=== PATIENT | female | born 1995 | race Caucasian/White ===

== ENCOUNTER 2018-09-18 22:44 | Emergency (ER) | payer SELFPAY ==
[2018-09-19] MEDS ORDERED: ONDANSETRON HCL INJ/PF 4 MG/2 ML SDV IV ONE ×2 (01:59→11:40)
[2018-09-19] MEDS ORDERED: IBUPROFEN 600 MG TABLET PO ONE (01:59)
--- NOTE | 2018-09-19 02:03 | ER Document Report ---
ED Medical Screen (RME) - General Chief Complaint: Vaginal Bleeding Stated Complaint: ABDOMINAL PAIN Time Seen by Provider: 09/19/18 01:57 Notes: 23-year-old healthy female presents to the emergency department with chief complaint of sharp abdominal pain in her right side and vaginal bleeding. She moved her IUD herself after googling it and had heavy bleeding immediately after. She said that she soaked the biggest tampon she did find persisted until yesterday. She said she was also passing clots. She then had sexual intercourse today and started bleeding again. She describes her pain and is both suprapubic and crampy but is also having significant right upper quadrant pain. She has nausea with no vomiting. Denies fevers or recent illness. She denies any urinary symptoms. TRAVEL OUTSIDE OF THE [place] IN LAST 30 DAYS: No Physical Exam - Vital signs Vitals: Temp Pulse Resp BP Pulse Ox 98.4 F 96 18 124/77 99 09/18/18 23:58 09/18/18 23:58 09/18/18 23:58 09/18/18 23:58 09/18/18 23:58 Course - Vital Signs Vital signs: Temp Pulse Resp BP Pulse Ox 98.4 F 96 18 124/77 99 09/18/18 23:58 09/18/18 23:58 09/18/18 23:58 09/18/18 23:58 09/18/18 23:58 - Laboratory Result Diagrams: 09/19/18 01:49 09/19/18 01:49
[2018-09-19 02:04] LABS: ABSOLUTE EOSINOPHILS # (AUTO) 0.1 10^3/uL (0.0-0.6); ABSOLUTE LYMPHOCYTES (AUTO) 2.5 10^3/uL (0.5-4.7); ABSOLUTE MONOCYTES (AUTO) 1.1 10^3/uL (0.1-1.4); ABSOLUTE NEUT (AUTO) 8.6 10^3/uL (1.7-8.2); BASOPHILS % (AUTO) 0.3 % (0-2); EOSINOPHILS % (AUTO) 0.7 % (0-6); HEMATOCRIT 39.6 % (36.0-47.0); HEMOGLOBIN 13.7 g/dL (12.0-15.5); LYMPHOCYTES % (AUTO) 20.2 % (13-45); MEAN CORPUSCULAR HEMOGLOBIN 32.6 pg (27.0-33.4); MEAN CORPUSCULAR HGB CONC 34.7 g/dL (32.0-36.0); MEAN CORPUSCULAR VOLUME 94 fl (80-97); MONOCYTES % (AUTO) 9.2 % (3-13); PLATELET COUNT 286 10^3/uL (150-450); RED BLOOD COUNT 4.21 10^6/uL (3.72-5.28); RED CELL DISTRIBUTION WIDTH 13.4 % (11.5-14.0); SEGMENTED NEUTROPHILS % (AUTO) 69.6 % (42-78); TOTAL CELLS COUNTED % (AUTO) 100 %; WHITE BLOOD COUNT 12.4 10^3/uL (4.0-10.5)
[2018-09-19 02:16] LABS: ALANINE AMINOTRANSFERASE 18 U/L (9-52); ALBUMIN 4.7 g/dL (3.5-5.0); ALKALINE PHOSPHATASE 75 U/L (38-126); ANION GAP 11 (5-19); ASPARTATE AMINO TRANSFERASE 22 U/L (14-36); BILIRUBIN,DIRECT 0.3 mg/dL (0.0-0.4); BILIRUBIN,TOTAL 0.5 mg/dL (0.2-1.3); BLOOD UREA NITROGEN 17 mg/dL (7-20); CALCIUM 9.5 mg/dL (8.4-10.2); CARBON DIOXIDE 26 mmol/L (22-30); CHLORIDE 102 mmol/L (98-107); GLUCOSE 98 mg/dL (75-110); LIPASE 20.5 U/L (23-300); POTASSIUM 4.2 mmol/L (3.6-5.0); SODIUM 139.2 mmol/L (137-145)
[2018-09-19] MEDS ORDERED: ONDANSETRON 4 MG TAB.RAPDIS ONE (02:18)
[2018-09-19] MEDS ORDERED: ONDANSETRON 4 MG TAB.RAPDIS PO ONE (02:19)
--- NOTE | 2018-09-19 03:14 | RADIOLOGY REPORT (SQ) ---
CLINICAL HISTORY: Vaginal bleeding COMPARISON: None. TECHNIQUE: US PELVIS TRANSVAGINAL on 09/19/2018 1:57 AM CDT FINDINGS: Uterus measures 8.5 cm with an endometrium measures 6 mm. The ovaries are unremarkable with patent flow. IMPRESSION: No evidence of hematoma within the uterus.
--- NOTE | 2018-09-19 03:30 | RADIOLOGY REPORT (SQ) ---
EXAM DESCRIPTION: US ABDOMEN LIMITED COMPLETED DATE/TME: 09/19/2018 01:57 CLINICAL HISTORY: 23 years Female, Right upper quadrant pain Comparison: None. LIMITATIONS: None. FINDINGS: Decompressed gallbladder, 0.3 cm gallbladder wall thickness, negative sonographic Cotton's test, liver, a 0.1-cm diameter common bile duct, no intrahepatic ductal dilation, hepatopetal patent flow of the portal vein, 10-cm right kidney, partially obscured pancreas, visualized vasculature/abdominal aorta, and no significant ascites appear otherwise unremarkable. IMPRESSION: Normal Abdominal Sonogram.
[2018-09-19 05:03] LABS: APPEARANCE,URINE SLIGHTLY-CLOUDY; BILIRUBIN,URINE NEGATIVE (NEGATIVE); COLOR,URINE YELLOW; GLUCOSE, URINE NEGATIVE (NEGATIVE); KETONES,URINE TRACE mg/dL (NEGATIVE); LEUKOCYTE ESTERASE,URINE TRACE (NEGATIVE); NITRITE,URINE NEGATIVE (NEGATIVE); PROTEIN,URINE NEGATIVE (NEGATIVE); URINE SPECIFIC GRAVITY 1.031; UROBILINOGEN,URINE NEGATIVE mg/dL (<2.0)
--- NOTE | 2018-09-19 08:58 | RADIOLOGY REPORT (SQ) ---
EXAM DESCRIPTION: CT ABD/PELVIS WITH IV ORAL COMPLETED DATE/TIME: 09/19/2018 7:51 am REASON FOR STUDY: RLQ pain COMPARISON: Abdominal ultrasound 09/19/2018 Pelvic ultrasound 09/19/2018 TECHNIQUE: CT scan of the abdomen and pelvis performed using helical scanning technique with dynamic intravenous contrast injection. Patient drank oral contrast. Additional post oral contrast delayed images through the pelvis were performed. Images reviewed with lung, soft tissue, and bone windows. Reconstructed coronal and sagittal MPR imag es reviewed. Delayed images for evaluation of the urinary system also acquired. All images stored on PACS. All CT scanners at this facility use dose modulation, iterative reconstruction, and/or weight based d osing when appropriate to reduce radiation dose to as low as reasonably achievable (ALARA). [facility]: Dose Right [facility]: CareDose [facility]: Dose Right [facility]: Teradose 4D [facility]: Gameotic CONTRAST TYPE AND DOSE: contrast/concentration: Isovue 350.00 mg/ml; Total Contrast Delivered: 69.0 ml; Total Saline Delivered: 65.0 ml RENAL FUNCTION: Creatinine 0.8 RADIATION DOSE: CT Rad equipment meets quality standard of care and radiation dose reduction techniq ues were employed. CTDIvol: 4.9 - 5.6 mGy. DLP: 561 mGy-cm.. LIMITATIONS: Oral contrasted not yet reached the cecum on the immediate post IV scanning and 1 hour delayed post IV scanning. FINDINGS: On axial series 3, image 66/93, a peripheral rim enhancing 2 by 1.4 cm right ovarian ruptu red follicle is present. This correlates with findings on pelvic ultrasound 09/19/2018. Despite oral contrast and delayed CT imaging through the pelvis to allow oral contrast to pass to the cecum, we were unable to opacified the distal ileum, cecum and appendix. There is no right lower qu adrant free fluid by CT. Moderate amount of stool in the ascending colon. These findings, and limitations of this study were discussed with Dr. Fniley, 0820 hours 09/19/2018. LOWER CHEST: No significant findings. No nodules or infiltrates. LIVER: Normal size. No masses. No dilated ducts. SPLEEN: Normal size. No focal lesions. PANCREAS: No masses. No significant calcifications. No adjacent inflammation or peripancreatic fluid collections. Pancreatic duct not dilated. GALLBLADDER: No identified stones by CT criteria. No inflammatory changes to suggest cholecystitis. ADRENAL GLANDS: No significant masses or asymmetry. RIGHT KIDNEY AND URETER: No solid masses. No significant calcifications. No hydronephrosis or hyd roureter. LEFT KIDNEY AND URETER: No solid masses. No significant calcifications. No hydronephrosis or hydr oureter. AORTA AND VESSELS: No aneurysm. No dissection. Renal arteries, SMA, celiac without stenosis. RETROPERITONEUM: No retroperitoneal adenopathy, hemorrhage or masses. BOWEL AND PERITONEAL CAVITY: No masses or inflammatory changes. No free fluid or peritoneal masses. Large amount of stool in the ascending colon APPENDIX: Not visualized PELVIS: No mass. No free fluid. Normal bladder. Normal size female pelvic organs. Peripheral rim e nhancing ruptured follicular cyst on axial image 66/33 as above. ABDOMINAL WALL: No masses. No hernias. BONES: No significant or acute findings. OTHER: No other significant finding. IMPRESSION: Nondiagnostic CT exam for appendicitis. TECHNICAL DOCUMENTATION: JOB ID: [id number] Quality ID # [id number]: Final reports with documentation of one or more dose reduction techniques (e.g., Au tomated exposure control, adjustment of the mA and/or kV according to patient size, use of iterative reconstruction technique) 2010 [employer]- All Rights Reserved Reading location - IP/workstation name: [email or web address]
--- NOTE | 2018-09-19 10:05 | ER Document Report ---
ED General - General Chief Complaint: Vaginal Bleeding Stated Complaint: ABDOMINAL PAIN Time Seen by Provider: 09/19/18 01:57 Notes: Patient presents with lower abdominal pain right greater than left onset about 5 days ago. 7 days ago she looked up on the Internet how to remove her IUD and did it. She states she removed in its entirety with both strings. An hour later she began cramping and having bleeding. This subsided and that she st arted developing pain. Over the last 5 days the pain is localized to the right lower quadrant. Feels fatigued and anorexic but no true fevers. No vomiting. No vaginal discharge. Had sex last night the pain got worse and she started bleeding slightly more. TRAVEL OUTSIDE OF THE [place] IN LAST 30 DAYS: No Past Medical History - Social History Smoking Status: Never Smoker Chew tobacco use (# tins/day): No Drug Abuse: None Family History: None Patient has suicidal ideation: No Patient has homicidal ideation: No Renal/ Medical History: Denies: Hx Peritoneal Dialysis Review of Systems - Review of Systems Notes: REVIEW OF SYSTEMS GEN: Denies fever, chills, weight loss ENT: Denies sore throat, nasal discharge, ear pain EYES: Denies blurry vision, eye pain, discharge CV: Denies chest pain, palpitations, edema RESP: Denies cough, shortness of breath, wheezing GI: Lower abdominal pain a MSK: Denies joint pain/swelling, edema, SKIN: Denies rash, skin lesions LYMPH: Denies swollen glands/lymph nodes NEURO: Denies headache, focal weakness or numbness, dizziness PSYCH: Denies depression, suicidal or homicidal ideation PHYSICAL EXAMINATION General: No acute distress, well-nourished Head: Atraumatic, normocephalic ENT: Mouth normal, oropharynx moist, no exudates or tonsillar enlargement Eyes: Conjunctiva normal, pupils equal, lids normal Neck: No JVD, supple, no guarding CVS: Normal rate, regular rhythm, no murmurs Resp: No resp distress, equal and normal breath sounds bilaterally GI: Nondistended, soft, focal right lower quadrant tenderness present. Genitourinary: Normal external genitalia. Vaginal canal normal. Cervix normal. No cervical motion tenderness. Minimal right adnexal versus right lower quadrant tenderness. Ext: No deformities, no edema, normal range of motion in upper and lower ext Back: No CVA or midline TTP Skin: No rash, warm Lymphatic: No lymphadeopathy noted Neuro: Awake, alert. Face symmetric. GCS 15. Physical Exam - Vital signs Vitals: Temp Pulse Resp BP Pulse Ox 98.4 F 96 18 124/77 99 09/18/18 23:58 09/18/18 23:58 09/18/18 23:58 09/18/18 23:58 09/18/18 23:58 Course - Re-evaluation Re-evalutation: 09/19/18 10:02 Patient presents with developing right-sided lower abdominal pain which is suspicious for appendicitis tubo-ovarian abscess or PID especially in the setting of recent uterine manipulation with the patient at home. Her labs show a very mild leukocytosis and she has a borderline fever. Her pelvic exam does not show cervical motion tenderness. I am unclear as to whether her presentation represents PID versus appendiceal problem. CT was ordered by previous provider and was done. Discussed with Dr. De Luna. She cannot see the appendix and is curious about inflammation either of the appendix or the terminal ileum but she cannot donate the 2. Also there is a deflated ovarian cyst on the right with some fluid surrounding it. Because of her difficult presentation and uncertain diagnosis I consulted both REGIONAL MEDICAL DIRECTOR, Dr. Harry, who says he is too busy to see the patient but suspect this is a surgical problem. Discussed with Dr. Chan who will see the patient but think this is more of a gynecologic problem. Either way I would like her to be admitted and observed. 09/19/18 10:35 REGIONAL MEDICAL DIRECTOR recommends outpatient PID treatment. Surgery is seendo not think appendicitis. The patient is reasonably comfortable. We will treat pain start Rocephin here and doxy, and discharged with Motrin and extended course of doxy for pelvic confirmatory disease. Partner treatment advised. Did indicate to her the lack of 100% certainty of her diagnosis and let her know that if the treatment is not working and she is getting worse that she is to return to the emergency department. I have discussed with the patient there likely diagnosis, aftercare plan, follow-up plans and my usual and customary return precautions. They verbalized understanding of this. - Vital Signs Vital signs: Temp Pulse Resp BP Pulse Ox 98.1 F 83 18 101/50 L 97 09/19/18 09:30 09/19/18 09:30 09/18/18 23:58 09/19/18 09:30 09/19/18 09:30 - Laboratory Result Diagrams: 09/19/18 01:49 09/19/18 01:49 Laboratory results interpreted by me: 09/19/18 09/19/18 09/19/18 01:49 01:49 04:22 WBC 12.4 H Absolute Neutrophils 8.6 H Lipase 20.5 L Urine Ketones TRACE H Ur Leukocyte Esterase TRACE H Discharge - Discharge Clinical Impression: Pelvic inflammatory disease (PID) Condition: Good Disposition: HOME, SELF-CARE Instructions: Pelvic Inflammatory Disease ([facility]) Prescriptions: Doxycycline Hyclate 100 mg PO BID #14 capsule Ibuprofen [Motrin 600 Mg Tablet] 600 mg PO TID #15 tablet Referrals: HARINI HARRY MD [ACTIVE STAFF] - Follow up as needed
[2018-09-19] MEDS ORDERED: CEFTRIAXONE 1 GM/D5W RTU 1 GM/50 ML RTUPB IV ONE (10:33)
[2018-09-19] MEDS ORDERED: DOXYCYCLINE HYCLATE 100 MG TABLET PO ONE (10:33)
[2018-09-19] MEDS ORDERED: OXYCODONE-ACETAMINOPHEN 5-325 MG TABLET PO ONE (10:33)
--- NOTE | 2018-09-19 10:50 | PDOC CONSULTATION ---
Consultation Consult Date: 09/19/18 Provider Consulted: DIONICIO GONZALEZ Consult reason:: R/O acute appendicitis History of Present Illness Admission Date/PCP: 09/19/18 History of Present Illness: CHIKI CHEATHAM is a 23 year old female who started c/o lower abdominal pains 2 weeks ago. She thought her pains were due to her IUD and pulled it out by herself a week ago. This was followed by vaginal bleeding and persistent lower a bdominal pains and went to ED last night. She had a CT scan of Abd/Pelvis which did not visualized the appendix and no inflammation in the RLQ. Seen by LAW OFFICE MANAGER and thought her symptoms are most likely due to PID. Social History Smoking Status: Never Smoker Family History Family History: None Parental Family History Reviewed: Yes Children Family History Reviewed: No Sibling(s) Family History Reviewed.: No Medication/Allergy Home Medications: Doxycycline Hyclate 100 mg PO BID #14 capsule 09/19/18 Ibuprofen [Motrin 600 Mg Tablet] 600 mg PO TID #15 tablet 09/19/18 Review of Systems Constitutional: PRESENT: as per HPI Physical Exam Vital Signs: Temp Pulse Resp BP Pulse Ox 98.1 F 83 18 101/50 L 97 09/19/18 09:30 09/19/18 09:30 09/18/18 23:58 09/19/18 09:30 09/19/18 09:30 Intake & Output 09/18/18 09/19/18 09/20/18 06:59 06:59 06:59 Weight 60.5 kg General appearance: PRESENT: no acute distress Head exam: PRESENT: atraumatic Eye exam: PRESENT: conjunctiva pink Mouth exam: PRESENT: moist Neck exam: PRESENT: full ROM Cardiovascular exam: PRESENT: RRR Pulses: PRESENT: normal radial pulses Vascular exam: PRESENT: normal capillary refill GI/Abdominal exam: PRESENT: soft, tenderness - RLQ and suprapubic areas. Mild LLQ and LUQ. No rebound Rectal exam: PRESENT: deferred Neurological exam: PRESENT: alert, oriented to person, oriented to place, oriented to time, oriented to situation Psychiatric exam: PRESENT: appropriate affect Skin exam: PRESENT: normal color, warm Results Laboratory Results: 09/19/18 01:49 09/19/18 01:49 09/19/18 09/19/18 09/19/18 01:49 01:49 04:22 WBC 12.4 H RBC 4.21 Hgb 13.7 Hct 39.6 MCV 94 MCH 32.6 MCHC 34.7 RDW 13.4 Plt Count 286 Seg Neutrophils % 69.6 Lymphocytes % 20.2 Monocytes % 9.2 Eosinophils % 0.7 Basophils % 0.3 Absolute Neutrophils 8.6 H Absolute Lymphocytes 2.5 Absolute Monocytes 1.1 Absolute Eosinophils 0.1 Absolute Basophils 0.0 Sodium 139.2 Potassium 4.2 Chloride 102 Carbon Dioxide 26 Anion Gap 11 BUN 17 Creatinine 0.75 Est GFR ( Amer) > 60 Est GFR (Non-Af Amer) > 60 Glucose 98 Calcium 9.5 Total Bilirubin 0.5 AST 22 ALT 18 Alkaline Phosphatase 75 Total Protein 8.0 Albumin 4.7 Lipase 20.5 L Urine Color YELLOW Urine Appearance SLIGHTLY-CLOUDY Urine pH 5.0 Ur Specific [place] 1.031 Urine Protein NEGATIVE Urine Glucose (UA) NEGATIVE Urine Ketones TRACE H Urine Blood NEGATIVE Urine Nitrite NEGATIVE Ur Leukocyte Esterase TRACE H Urine WBC (Auto) 11 Urine RBC (Auto) 3 Impressions: Abdomen Ultrasound 09/19/18 01:57 IMPRESSION: Normal Abdominal Sonogram. Transvaginal US 09/19/18 01:57 IMPRESSION: No evidence of hematoma within the uterus. Abdomen/Pelvis CT 09/19/18 07:09 IMPRESSION: Nondiagnostic CT exam for appendicitis. Assessment & Plan - Diagnosis (1) Pelvic inflammatory disease (PID) Is this a current diagnosis for this admission?: Yes - Time Time Spent: 30 to 50 Minutes - Plan Summary Plan Summary: Doubt Acute appendicitis. Had a long talk with the patient and told her to come back if her RLQ pains get worse and associated with Nausea/vomiting, fever and chills. D/W Dr Moustapha RILEY MD. He will discharge her on po antibiotics for PID and [facility].
[2018-09-19 12:33] VITALS: BP 107/60
== END 2018-09-19 12:32 | disposition home or self-care (01) ==
LOC: ER 22:44
DX: N73.9 Female pelvic inflammatory disease, unspecified (principal); N93.8 Other specified abnormal uterine and vaginal bleeding; R10.30 Lower abdominal pain, unspecified
CPT/HCPCS: 99284; 96375; 96365; 36415; 84702; 83690; 85025; 80053; 81001; 76705; 76830; 93976; 74177; S0119; J2405; J0696